=== PATIENT | female | born 1965 | race Caucasian/White ===

== ENCOUNTER → 2018-05-23 | Outpatient (CLI) | payer BC ==
--- NOTE | 2018-05-23 08:18 | US ---
EXAMINATION TYPE: US abdomen complete DATE OF EXAM: 05/23/2018 COMPARISON: Complete abdominal ultrasound June 23, 2015 CLINICAL HISTORY: R74.8 Abnormal levels of other serum enzymes. EXAM MEASUREMENTS: Liver Length: 14.5 cm Gallbladder Wall: 0.1 cm CBD: 0.4 cm Spleen: 11.1 cm Right Kidney: 13.0 x 4.5 x 4.9 cm Left Kidney: 11.6 x 6.8 x 5.9 cm Pancreas: visualized portions wnl Liver: difficult to penetrate Gallbladder: No stones seen Evidence for sonographic Galindo's sign: No CBD: wnl Spleen: wnl Right Kidney: No hydronephrosis or masses seen Left Kidney: No hydronephrosis or masses seen Upper IVC: wnl Abd Aorta: wnl The visualized liver is heterogeneously hyperechoic. No worrisome intrahepatic ductal dilatation is s een. Evaluation for focal masses is suboptimal due to the heterogeneity. The intrahepatic portion of the IVC and visualized abdominal aorta are within normal limits. There is no evidence of cholelithi asis. Common bile duct is unremarkable. The visualized portions of the pancreas are heterogeneous. The spleen is unremarkable. Kidneys are symmetric and free of hydronephrosis. No renal lesions are seen. IMPRESSION: Heterogeneous hyperechoic appearance of liver is likely on basis of diffuse fatty infiltr ation. No significant change from prior ultrasound. Imaging guided random biopsy for tissue analysis can be performed if desired.
== END | disposition home or self-care (01) ==
LOC: RADUSWWP 06:56
PROVIDERS: ATTEND Family Medicine
DX: R93.2 Abnormal findings on diagnostic imaging of liver and biliary tract (principal)
CPT/HCPCS: 76700